=== PATIENT | male | born 2000 | race Caucasian/White ===

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

== ENCOUNTER 2022-04-15 06:22 | Emergency (ER) | payer BC, SELFPAY ==
[~2022-04-15] VITALS: Ht 167.6 cm; Wt 67.8 kg
[~2022-04-15 06:22] MED LIST changes: +KEFL500C17 PO
[2022-04-15] MEDS ORDERED: NS 1,000 ML IV ONE (08:45)
[2022-04-15] MEDS ORDERED: ONDANSETRON 4MG 2ML VIAL IV ONE (08:45)
[2022-04-15] MEDS ORDERED: KETOROLAC 30 MG/ML 1ML VIAL IV ONE (08:45)
[2022-04-15] MEDS ORDERED: ISOVUE-370 76% 100ML VIAL As Ordered ONE (09:04)
[2022-04-15 09:21] LABS: BASO # 0.1 10^3/uL (0.0-0.2); BASO % 0.3 % (0.0-1.0); EOS % 0.1 % (0.0-3.0); HEMATOCRIT 39.9 % (42.0-52.0); HEMOGLOBIN 14.5 g/dl (13.5-17.5); LYMPH # 0.9 10^3/uL (1.5-5.0); LYMPH % 6.3 % (24.0-44.0); MEAN CORPUSCULAR HEMOGLOBIN 32.1 pg (27.0-33.0); MEAN CORPUSCULAR HGB CONC 36.3 g/dl (32.0-36.5); MEAN CORPUSCULAR VOLUME 88.3 fl (80.0-96.0); MONO # 0.8 10^3/uL (0.0-0.8); MONO % 5.4 % (2.0-8.0); NEUTROPHILS # 12.8 10^3/uL (1.5-8.5); NEUTROPHILS % 87.5 % (36.0-66.0); PLATELET COUNT, AUTOMATED 263 10^3/uL (150-450); RED BLOOD COUNT 4.52 10^6/uL (4.30-6.10); WHITE BLOOD COUNT 14.7 10^3/uL (4.0-10.0)
[2022-04-15 10:08] LABS: ALBUMIN 4.3 G/DL (3.2-5.2); BILIRUBIN,DIRECT 0.2 MG/DL (<0.4); BILIRUBIN,TOTAL 0.5 MG/DL (0.3-1.2); TOTAL PROTEIN 7.2 G/DL (5.7-8.2)
[2022-04-15 10:55] VITALS: BP 137/89
[2022-04-15] MEDS ORDERED: FLOM0.4C39 PO (11:04)
[2022-04-15] MEDS ORDERED: TAMSULOSIN 0.4 MG CAP PO ONE (11:10)
== END 2022-04-15 11:21 | disposition home or self-care (01) ==
LOC: M ED 06:22
DX: N20.1 Calculus of ureter (principal); R11.2 Nausea with vomiting, unspecified; N13.30 Unspecified hydronephrosis
CPT/HCPCS: 74177; 80047; 80076; 81002; 83690; 85025; 96374; 96375; 99284; J1885; J2405

== ENCOUNTER → 2022-05-24 | Outpatient (REF) | payer BC ==
[~2022-05-24] MED LIST changes: +FLOM0.4C39 PO
[2022-05-28 23:07] LABS: CA Oxalate Dihy 20 % (.); Ca Ox Monohydrate 80 % (.)
== END ==
LOC: M SMT 17:23
PROVIDERS: ATTEND Physician Assistant
DX: N20.1 Calculus of ureter (principal)

== ENCOUNTER → 2023-06-06 | Outpatient (CLI) | payer BC | LOC: M PLAIMG 15:19 | PROVIDERS: ATTEND Physician Assistant | DX: N20.1 Calculus of ureter (principal) ==